=== PATIENT | female | born 1965 | race African-American/Black ===

== ENCOUNTER → 2016-06-22 | Outpatient (CLI) | payer MEDICARE, MEDICAID | LOC: WI 14:04 | PROVIDERS: ATTEND Internal Medicine | DX: Z12.31 Encounter for screening mammogram for malignant neoplasm of breast (principal) | CPT/HCPCS: 77067; G0202 ==

== ENCOUNTER → 2016-08-03 | Outpatient (CLI) | payer MEDICAID, MEDICARE ==
--- NOTE | 2016-08-04 16:34 | XCELERA REPORT ---
[address] [address] Lower Extremity Arterial Evaluation Name: LARON HAHN Age: 51 yrs Gender: Female : 1965 Patient Status: Preadmit Patient Location: Study Date: 08/03/2016 11:37 AM Procedure: A color flow and duplex scan of the lower extremity arteries was performed bilaterally with velocity and waveform analysis. Reason For Study: ATHEROSCLEROSIS CLAUDICATION Ordering Physician: TENZIN SPENCER Performed By: Cyndi Tineo Measurements and Calculations Right Left BULL FIDDLE PLAYER PSV 124.1 99.8 cm/sec Prox PFA PSV -71.2 -65.0 cm/sec Prox SFA PSV 109.2 51.9 cm/sec Mid SFA PSV -100.4 -58.1 cm/sec Dist SFA PSV -71.2 -90.8 cm/sec Prox Pop A PSV 71.2 59.4 cm/sec Prox OLU PSV 55.6 cm/sec Dist OLU PSV 44.0 47.4 cm/sec Dist CLERICAL ADJUDICATOR PSV 26.4 55.2 cm/sec Edwar Pedis PSV 39.9 -36.8 cm/sec Right Side Arterial Evaluation Normal velocity and triphasic waveforms noted from the Common Femoral artery to the Popliteal. Biphasic in the infrageniculate vessels. Diffuse vessel calcification, 20-49 % stenosis at the infrageniculate level. Ankle Brachial index was not obtainable, non compressible vessels. Left Side Arterial Evaluation Normal velocity and triphasic waveforms noted from the Common Femoral artery to the Popliteal. Biphasic in the infrageniculate vessels. Diffuse vessel calcification, 20-49 % stenosis at the infrageniculate level. Ankle Brachial index was not obtainable, non compressible vessels. Interpretation Summary Moderate hemodynamically significant lesions in the bilateral lower extremities, on duplex imaging, at rest. : TENZIN SPENCER > Tony Chakraborty
== END ==
LOC: SP 11:15
PROVIDERS: ATTEND Surgery Vascular Surgery
DX: I70.213 Atherosclerosis of native arteries of extremities with intermittent claudication, bilateral legs (principal)
CPT/HCPCS: 93925

== ENCOUNTER → 2016-10-28 | Outpatient (CLI) | payer MEDICAID, MEDICARE ==
--- NOTE | 2016-10-29 00:45 | RADIOLOGY REPORT (SQ) ---
EXAM DESCRIPTION: CT RT LOWER EXTREMITY WITHOUT COMPLETED DATE/TIME: 10/28/2016 12:34 pm REASON FOR STUDY: PAIN IN RIGHT HIP M25.551 PAIN IN RIGHT HIP COMPARISON: 01/11/2015 TECHNIQUE: CT scan of the right hip performed without intravenous or oral contrast. Images reviewed with soft tissue and bone windows. Reconstructed coronal and sagittal MPR images reviewed. All thong ges stored on PACS. All CT scanners at this facility use dose modulation, iterative reconstruction, and/or weight based d osing when appropriate to reduce radiation dose to as low as reasonably achievable (ALARA). [facility]: Dose Right [facility]: CareDose [facility]: Dose Right [facility]: Teradose 4D [facility]: [employer] RADIATION DOSE: Up-to-date CT equipment and radiation dose reduction techniques were employed. CTDIv ol: 11.0 mGy. DLP: 401 mGy-cm. mGy. LIMITATIONS: None. FINDINGS: PELVIC BONES: No acute fracture. No worrisome bone lesions. VISUALIZED SPINE: Extensive degenerative changes with irregularity of the endplates suggests renal os teodystrophy. SYMPTOMATIC HIP: Extensive subchondral cyst formation of the acetabulum. Stable since 2014. OPPOSITE HIP: Not imaged PELVIC SOFT TISSUES: Peritoneal dialysis catheter. Extensive vascular calcification. Vena caval umb rella. EXTRAPELVIC SOFT TISSUES: No significant findings. OTHER: No other significant finding. IMPRESSION: Extensive subchondral cyst formation of the right acetabulum unchanged since the previou s study. No acute fracture. Renal osteodystrophy. Peritoneal dialysis catheter in fluid in the pelvis. TECHNICAL DOCUMENTATION: JOB ID: [id number] Quality ID # [id number]: Final reports with documentation of one or more dose reduction techniques (e.g., Au tomated exposure control, adjustment of the mA and/or kV according to patient size, use of iterative reconstruction technique) 2010 [employer]- All Rights Reserved
== END ==
LOC: RAD 11:50
PROVIDERS: ATTEND Internal Medicine
DX: M25.551 Pain in right hip (principal); M85.68 Other cyst of bone, other site; N25.0 Renal osteodystrophy

== ENCOUNTER → 2016-12-18 | Outpatient (CLI) | payer MEDICARE, MEDICAID ==
--- NOTE | 2016-12-18 12:37 | RADIOLOGY REPORT (SQ) ---
EXAM DESCRIPTION: CT ABDOMEN IV CONTRAST ONLY COMPLETED DATE/TIME: 12/18/2016 11:28 am REASON FOR STUDY: GENERALIZED ABDOMINAL PAIN R10.84 GENERALIZED ABDOMINAL PAIN COMPARISON: None. TECHNIQUE: CT scan of the abdomen performed with intravenous and without oral contrast using helical scanning technique with dynamic intravenous contrast injection. Images reviewed with lung, soft tiss ue, and bone windows. Reconstructed coronal and sagittal MPR images reviewed. Delayed images for eval uation of the urinary system also acquired and evaluated. All images stored on PACS. All CT scanners at this facility use dose modulation, iterative reconstruc tion, and/or weight based dosing when appropriate to reduce radiation dose to as low as reasonably ac hievable (ALARA). [facility]: Dose Right [facility]: CareDose [facility]: Dose Right [facility]: Teradose 4D [facility]: REMOTV CONTRAST TYPE AND DOSE: contrast/concentration: Isovue 300.00 mg/ml; Total Contrast Delivered: 45.0 ml; Total Saline Delivered: 68.0 ml RENAL FUNCTION: Not applicable. The patient is on dialysis. RADIATION DOSE: Up-to-date CT equipment and radiation dose reduction techniques were employed. CTDIv ol: 8.3 - 9.8 mGy. DLP: 632 mGy-cm. . LIMITATIONS: None. FINDINGS: LOWER CHEST: No significant findings. No nodules or infiltrates. LIVER: Normal size. No masses. No dilated ducts. SPLEEN: Normal size. No focal lesions. PANCREAS: No masses. No significant calcifications. No adjacent inflammation or peripancreatic fluid collections. Pancreatic duct not dilated. GALLBLADDER: Surgically absent. ADRENAL GLANDS: No significant masses or asymmetry. RIGHT KIDNEY AND URETER: The right kidney is atrophic. Multiple hypoattenuating areas probably repr esent cysts. There is no enhancement or excretion. There is vascular calcification. LEFT KIDNEY AND URETER: Surgically absent. AORTA AND VESSELS: No aneurysm. No dissection. Renal arteries, SMA, celiac without stenosis. IVC mil ter is in place. RETROPERITONEUM: No retroperitoneal adenopathy, hemorrhage or masses. BOWEL AND PERITONEAL CAVITY: Peritoneal dialysis catheter is in place. Minimal free fluid. GI tract reveals a nonobstructive pattern. No bowel wall thickening. APPENDIX: Normal. ABDOMINAL WALL: No masses. No hernias. BONES: Bones are sclerotic appearing consistent with renal osteodystrophy. OTHER: There is extensive coronary artery calcification noted. IMPRESSION: 1. Small atrophic right kidney. Peritoneal dialysis catheter is in place. There is a small amount of free fluid. 2. Prior left nephrectomy. 3. No acute findings in the abdomen or pelvis. TECHNICAL DOCUMENTATION: JOB ID: [id number] Quality ID # [id number]: Final reports with documentation of one or more dose reduction techniques (e.g., Au tomated exposure control, adjustment of the mA and/or kV according to patient size, use of iterative reconstruction technique) 2010 [employer]- All Rights Reserved
== END ==
LOC: RAD 10:25
PROVIDERS: ATTEND Internal Medicine
DX: R10.84 Generalized abdominal pain (principal)
CPT/HCPCS: 74160; 82565

== ENCOUNTER → 2017-09-07 | Outpatient (CLI) | payer MEDICARE, MEDICAID | LOC: DAVITANR 10:07 | PROVIDERS: ATTEND Internal Medicine Nephrology | DX: E87.5 Hyperkalemia (principal) | CPT/HCPCS: 84132 ==

== ENCOUNTER 2017-12-11 16:08 | Emergency (ER) | payer MEDICARE, MEDICAID ==
--- NOTE | 2017-12-11 18:18 | ER Document Report ---
ED Medical Screen (RME) - General Chief Complaint: Chest Pain Stated Complaint: CHEST PAIN/BLOOD PRESSURE ISSUES Time Seen by Provider: 12/11/17 18:00 TRAVEL OUTSIDE OF THE [place] IN LAST 30 DAYS: No - HPI Notes: 12/11/17 18:15 Patient is a 52-year-old female with a history of end-stage renal disease (on peritoneal dialysis daily), peripheral vascular disease with right BKA, recent infection to the stump of the BKA and hospitalization at [facility] (discharged end of November) who presents to the ED complaining of feeling weak, and having right-sided chest pain over the last couple days. Denies any headache, fever, neck pain, changes in vision/speech/mentation/ hearing, URI, sore throat, palpitations, syncope, cough, shortness of breath, wheeze, dyspnea, abdominal pain, nausea/vomiting/diarrhea, or rash. I have treated and performed a rapid initial assessment of this patient. A comprehensive ED assessment and evaluation of the patient, analysis of test results and completion of medical decision making process will be conducted by additional ED providers. PHYSICAL EXAMINATION: GENERAL: Well-appearing, well-nourished and in no acute distress. A&Ox4. Answers questions appropriately. LUNGS: Breath sounds clear to auscultation bilaterally and equal. No wheezes rales or rhonchi. HEART: Regular rate and rhythm without murmurs, rubs, gallops. ABDOMEN: Soft, nondistended abdomen. No guarding, no rebound. Normal bowel sounds present. No CVA tenderness bilaterally. Non-tender. MS: wound dressed rt BKA. Extremities: No cyanosis, clubbing, or edema b/l. NEUROLOGICAL: Normal speech. PSYCH: Normal mood, normal affect. - Related Data Allergies/Adverse Reactions: Penicillins Allergy (Intermediate, Verified 12/11/17 16:09) moxifloxacin HCl [From Avelox] Allergy (Unknown, Verified 12/11/17 16:09) diphenhydramine HCl [From Benadryl] Allergy (Verified 12/11/17 16:09) Chest pain any mycins Allergy (Intermediate, Uncoded 01/08/15 14:55) Past Medical History - Past Medical History Cardiac Medical History: Reports: Hx Congestive Heart Failure, Hx Hypercholesterolemia, Hx Hypertension, Hx Peripheral Vascular Disease, Hx Pulmonary Embolism - IVC filter Pulmonary Medical History: Reports: Hx Asthma, Hx Bronchitis, Hx COPD, Hx Pneumonia Endocrine Medical History: Reports: Hx Diabetes Mellitus Type 1, Hx Diabetes Mellitus Type 2 Renal/ Medical History: Reports: Hx End Stage Renal Disease. Denies: Hx Peritoneal Dialysis Malignancy Medical History: Reports: Hx Renal (Kidney) Cancer GI Medical History: Reports: Hx Gastroesophageal Reflux Disease Musculoskeltal Medical History: Reports Hx Arthritis Traumatic Medical History: Reports: Hx Fractures - foot Past Surgical History: Reports: Hx Section, Hx Cholecystectomy. Denies : Hx Pacemaker - Immunizations Immunizations up to date: Yes Hx Diphtheria, Pertussis, Tetanus Vaccination: Yes Physical Exam - Vital signs Vitals: Temp Pulse Resp BP Pulse Ox 98.8 F 99 18 95/79 L 100 12/11/17 17:07 12/11/17 17:07 12/11/17 17:07 12/11/17 17:07 12/11/17 17:07 Course - Vital Signs Vital signs: Temp Pulse Resp BP Pulse Ox 98.8 F 99 18 95/79 L 100 12/11/17 17:07 12/11/17 17:07 12/11/17 17:07 12/11/17 17:07 12/11/17 17:07 Doctor's Discharge - Discharge Referrals: Shannan GARCIA MD [Primary Care Provider] - Follow up as needed
--- NOTE | 2017-12-11 18:45 | RADIOLOGY REPORT (SQ) ---
EXAM DESCRIPTION: CHEST SINGLE VIEW COMPLETED DATE/TIME: 12/11/2017 6:35 pm REASON FOR STUDY: rt chest pain COMPARISON: 08/11/2014. EXAM PARAMETERS: NUMBER OF VIEWS: One view. TECHNIQUE: Single frontal radiographic view of the chest acquired. RADIATION DOSE: NA LIMITATIONS: None. FINDINGS: LUNGS AND PLEURA: Mild linear atelectasis or scarring in the left lung base. No focal inf iltrates, masses or pneumothorax. No pleural effusion. MEDIASTINUM AND HILAR STRUCTURES: No masses. Contour normal. HEART AND VASCULAR STRUCTURES: Heart normal in size. Normal vasculature. BONES: No acute findings. HARDWARE: None in the chest. Surgical clips in the soft tissues. OTHER: No other significant finding. IMPRESSION: NO ACUTE RADIOGRAPHIC FINDING IN THE CHEST. TECHNICAL DOCUMENTATION: JOB ID: [id number] [employer]- All Rights Reserved Reading location - IP/workstation name: [email or web address]
--- NOTE | 2017-12-11 19:29 | EKG REPORT ---
SEVERITY:- ABNORMAL ECG - SINUS TACHYCARDIA MULTIFORM VENTRICULAR PREMATURE COMPLEXES CONSIDER POSTERIOR INFARCT ABNORMAL T, CONSIDER ISCHEMIA, LATERAL LEADS : Confirmed by: Yordan Grullon MD 11-Dec-2017 19:28:33
[2017-12-11] MEDS ORDERED: NORMAL SALINE 500 ML IV ONE (22:50)
--- NOTE | 2017-12-11 22:53 | ER Document Report ---
ED General - General Chief Complaint: Chest Pain Stated Complaint: CHEST PAIN/BLOOD PRESSURE ISSUES Time Seen by Provider: 12/11/17 18:00 Mode of Arrival: Wheelchair Information source: Patient Notes: This is a 52-year-old female with a history of COPD, diabetes (BKA), end-stage renal disease (hemodialysis) who presents to the emergency room because of feeling weak (generalized) after dialysis. Blood pressure was noted to be 85/ 60 in triage. Patient denies chest pain when asked. She states she just does not feel energetic. TRAVEL OUTSIDE OF THE [place] IN LAST 30 DAYS: No - HPI Onset: Just prior to arrival Onset/Duration: Gradual Quality of pain: Dull Severity: Mild Pain Level: 1 Associated symptoms: Chest pain, Weakness. denies: Fever, Shortness of breath Exacerbated by: Denies Relieved by: Denies Similar symptoms previously: Yes Recently seen / treated by doctor: Yes - Related Data Allergies/Adverse Reactions: Penicillins Allergy (Intermediate, Verified 12/11/17 16:09) moxifloxacin HCl [From Avelox] Allergy (Unknown, Verified 12/11/17 16:09) diphenhydramine HCl [From Benadryl] Allergy (Verified 12/11/17 16:09) Chest pain any mycins Allergy (Intermediate, Uncoded 01/08/15 14:55) Past Medical History - General Information source: Patient - Social History Smoking Status: Never Smoker Cigarette use (# per day): No Chew tobacco use (# tins/day): No Frequency of alcohol use: None Drug Abuse: None Lives with: Family Family History: DM, Hypertension Patient has suicidal ideation: No Patient has homicidal ideation: No - Past Medical History Cardiac Medical History: Reports: Hx Congestive Heart Failure, Hx Hypercholesterolemia, Hx Hypertension, Hx Peripheral Vascular Disease, Hx Pulmonary Embolism - IVC filter Pulmonary Medical History: Reports: Hx Asthma, Hx Bronchitis, Hx COPD, Hx Pneumonia Endocrine Medical History: Reports: Hx Diabetes Mellitus Type 1, Hx Diabetes Mellitus Type 2 Renal/ Medical History: Reports: Hx End Stage Renal Disease. Denies: Hx Peritoneal Dialysis Malignancy Medical History: Reports: Hx Renal (Kidney) Cancer GI Medical History: Reports: Hx Gastroesophageal Reflux Disease Musculoskeletal Medical History: Reports Hx Arthritis Traumatic Medical History: Reports: Hx Fractures - foot Past Surgical History: Reports: Hx Section, Hx Cholecystectomy. Denies : Hx Pacemaker - Immunizations Immunizations up to date: Yes Hx Diphtheria, Pertussis, Tetanus Vaccination: Yes Hx Pneumococcal Vaccination: 02/07/11 Review of Systems - Review of Systems Constitutional: denies: Chills, Fever EENT: No symptoms reported Cardiovascular: Chest pain. denies: Palpitations, Heart racing, Orthopnea Respiratory: denies: Cough, Hemoptysis, Wheezing Gastrointestinal: No symptoms reported Genitourinary: No symptoms reported Female Genitourinary: No symptoms reported Musculoskeletal: No symptoms reported Skin: No symptoms reported Hematologic/Lymphatic: No symptoms reported Neurological/Psychological: Weakness Physical Exam - Vital signs Vitals: Temp Pulse Resp BP Pulse Ox 98.8 F 99 18 95/79 L 100 12/11/17 17:07 12/11/17 17:07 12/11/17 17:07 12/11/17 17:12/11/17 17:07 Notes: Physical exam: GENERAL: 52-year-old female, alert and oriented 3, no acute distress HEAD: Atraumatic, normocephalic. EYES: Pupils equal round and reactive to light, extraocular movements intact, sclera anicteric, conjunctiva are normal. ENT: Nares patent, oropharynx clear without exudates. Moist mucous membranes. NECK: Normal range of motion, supple without obvious mass or JVD. LUNGS: Breath sounds clear to auscultation bilaterally and equal. No wheezes rales or rhonchi. HEART: Regular rate and rhythm without murmurs, rubs or gallops. ABDOMEN: Soft, normoactive bowel sounds. No tenderness to palpation. No guarding, no rebound. No masses appreciated. Patient does have a peritoneal dialysis tube. The site is dry and there is no pus drainage or evidence of infection (the patient did give history that she had a skin infection around the site a few weeks ago, it looks quite good now). EXTREMITIES: She has a right BKA, dressings were taken down. She does have healing wound of the stump. There is no anaerobic smell. There is no pus drainage. The tissue does look viable and healing. The wound was redressed. NEUROLOGICAL: Cranial nerves II through XII grossly intact. Normal speech, moving all extremities. PSYCH: Normal mood, normal affect. SKIN: Warm, Dry, normal turgor, no rashes or lesions noted except as noted under the extremity and abdomen exam Course - Re-evaluation Re-evalutation: 12/12/17 00:24 12/12/17 00:25 12/12/17 01:11 Patient's blood pressure is up to 110/70. She did have some hypotension earlier. She did complain of some chest pain. Given this we will continue to watch her. The dressings for her right lower extremity BKA were changed. The wound is healing, there is no anaerobic smell, there is no pus drainage. Also, the skin around her peritoneal dialysis tube is clear and without discharge. 12/12/17 01:[address] Mast who was willing to admit the patient and I have arranged for a bed. However the patient is really against admission. States she feels much better and was passing a lot of gas and everything is gone away. I discussed with her that this does not mean she could not have had real chest pain, but she has been through a lot and she really does not want to stay. I let her know that I am working tomorrow in the weekend and she can come back if she has any problems. She is okay with that. - Vital Signs Vital signs: Temp Pulse Resp BP Pulse Ox 98.8 F 99 16 82/62 L 92 12/11/17 17:07 12/11/17 17:07 12/12/17 00:00 12/11/17 20:14 12/12/17 00:00 - Laboratory Result Diagrams: 12/11/17 22:50 12/11/17 22:50 Laboratory results interpreted by me: 12/11/17 12/11/17 12/11/17 22:50 22:50 22:50 WBC 14.4 H MCV 76 L MCH 23.7 L MCHC 31.3 L RDW 18.7 H Plt Count 516 H Absolute Neutrophils 9.1 H PT 17.7 H Potassium 3.1 L Chloride 94 L BUN 28 H Creatinine 9.62 H Est GFR ( Amer) 5 L Est GFR (Non-Af Amer) 4 L AST 12 L Albumin 3.3 L - Diagnostic Test Radiology reviewed: Image reviewed, Reports reviewed - Chest x-ray shows no infiltrates - EKG Interpretation by Me Rate: Normal Rhythm: NSR - EKG shows normal sinus rhythm with PVCs, the ventricular rate is 97, no acute ST-T wave changes Discharge - Discharge Clinical Impression: Chest pain, Hypokalemia Clinical Impression: (Ruled Out): Flank pain Condition: Stable Disposition: HOME, SELF-CARE Instructions: Chest Pain of Unclear Cause ([facility]) Additional Instructions: Continue current medicines. We will call in the morning and schedule an appointment. Return to the emergency room for any worsening chest pain, shortness of breath or any concerns or getting worse. Referrals: Shannan GARCIA MD [Primary Care Provider] - Follow up as needed ALEXANDR TONY MD [ACTIVE STAFF] - Follow up in 3-5 days
[2017-12-11 23:32] LABS: ABSOLUTE BASOPHILS # (AUTO) 0.1 10^3/uL (0.0-0.2); ABSOLUTE EOSINOPHILS # (AUTO) 0.3 10^3/uL (0.0-0.6); ABSOLUTE LYMPHOCYTES (AUTO) 3.8 10^3/uL (0.5-4.7); ABSOLUTE MONOCYTES (AUTO) 1.1 10^3/uL (0.1-1.4); ABSOLUTE NEUT (AUTO) 9.1 10^3/uL (1.7-8.2); EOSINOPHILS % (AUTO) 2.1 % (0-6); HEMATOCRIT 38.9 % (36.0-47.0); HEMOGLOBIN 12.2 g/dL (12.0-15.5); INTERNATIONAL RATION (INR) 1.38; LYMPHOCYTES % (AUTO) 26.1 % (13-45); MEAN CORPUSCULAR HEMOGLOBIN 23.7 pg (27.0-33.4); MEAN CORPUSCULAR HGB CONC 31.3 g/dL (32.0-36.0); MEAN CORPUSCULAR VOLUME 76 fl (80-97); MONOCYTES % (AUTO) 7.7 % (3-13); PLATELET COUNT 516 10^3/uL (150-450); PROTHROMBIN TIME 17.7 SEC (11.4-15.4); RED BLOOD COUNT 5.12 10^6/uL (3.72-5.28); RED CELL DISTRIBUTION WIDTH 18.7 % (11.5-14.0); SEGMENTED NEUTROPHILS % (AUTO) 63.1 % (42-78); TOTAL CELLS COUNTED % (AUTO) 100 %; WHITE BLOOD COUNT 14.4 10^3/uL (4.0-10.5)
[2017-12-11 23:50] LABS: ALANINE AMINOTRANSFERASE 16 U/L (9-52); ALBUMIN 3.3 g/dL (3.5-5.0); ALKALINE PHOSPHATASE 111 U/L (38-126); ANION GAP 16 (5-19); ASPARTATE AMINO TRANSFERASE 12 U/L (14-36); BILIRUBIN,DIRECT 0.4 mg/dL (0.0-0.4); BILIRUBIN,TOTAL 0.4 mg/dL (0.2-1.3); BLOOD UREA NITROGEN 28 mg/dL (7-20); CALCIUM 9.1 mg/dL (8.4-10.2); CARBON DIOXIDE 29 mmol/L (22-30); CHLORIDE 94 mmol/L (98-107); GLUCOSE 99 mg/dL (75-110); POTASSIUM 3.1 mmol/L (3.6-5.0); SODIUM 138.8 mmol/L (137-145)
[2017-12-12] MEDS ORDERED: POTASSIUM CHLORIDE 10 MEQ CAPSULE.ER PO ONE (00:44)
[2017-12-12] MEDS ORDERED: MORPHINE SULFATE 10 MG/ML INJ IV ONE (01:16)
[2017-12-12] MEDS ORDERED: ONDANSETRON HCL INJ/PF 4 MG/2 ML SDV IV ONE (01:16)
[2017-12-12] MEDS ORDERED: AZTREONAM 1 GM in DEXTROSE 5%-WATER 50 ML IV SCH (02:00)
[2017-12-12] MEDS ORDERED: AZTREONAM INJ 1 GM VIAL IV PRN (02:02)
[2017-12-12] MEDS ORDERED: HYDROCODONE/ACETAMINOPHEN 5-325 MG (6 TAB/ER DISP) PO PRN (02:09)
[2017-12-12 02:48] LABS: FREE T4 (FREE THYROXINE) 1.51 ng/dL (0.78-2.19)
[2017-12-12] MEDS ORDERED: ONDANSETRON ODT 4 MG TAB (6 TAB/ER DISP) PO PRN (03:01)
[2017-12-12 03:02] LABS: THYROID STIMULATING HORMONE 2.4 uIU/mL (0.47-4.68)
[2017-12-12 04:13] LABS: LIPASE 357.3 U/L (23-300); PHOSPHORUS 5.3 mg/dL (2.5-4.5)
[2017-12-12] MEDS ORDERED: HEPARIN SOD (PORCINE) 5,000 UNIT/ML 1 ML SYRINGE SUBCUT SCH (06:00)
[2017-12-12 06:53] VITALS: BP 101/66
== END 2017-12-12 03:10 | disposition home or self-care (01) ==
LOC: ER 16:08
DX: R07.9 Chest pain, unspecified (principal); E87.6 Hypokalemia; J44.9 Chronic obstructive pulmonary disease, unspecified; E11.22 Type 2 diabetes mellitus with diabetic chronic kidney disease; I12.0 Hypertensive chronic kidney disease with stage 5 chronic kidney disease or end stage renal disease; N18.6 End stage renal disease; Z99.2 Dependence on renal dialysis; Z89.512 Acquired absence of left leg below knee; Z89.511 Acquired absence of right leg below knee
CPT/HCPCS: 93005; 99285; 96361; 96374; 96375; 36415; 84439; 82150; 83690; 84100; 84443; 85025; 85610; 85730; 80053; 84484; 71045; 93010; J2270; J2405; J7040; A9270 ×3